=== PATIENT | female | born 1995 | race Caucasian/White ===

== ENCOUNTER 2018-05-28 11:51 | Outpatient (REF) | payer MEDICAID, SELFPAY ==
--- NOTE | 2018-05-28 11:20 | PAPFT_PTH ---
PATIENT: Jie Whiting LOC: [facility] U#:[id number] AGE/SX: 22/F ROOM: RE05/28/[address]: Shanna Rutherford NP : 1995 BED: DIS: 05/28/2018 SPEC #: [id number] RECD: 05/28/18 17:49 STATUS: JULISSA SULLIVAN #: [id number] FIDENCIO: 05/28/18 11:[address]: Shanna Rutherford NP DEPT: [facility] Cytology RECD BY: Alyssa Gutierrez ENTERED: 05/28/18 17:49 SP TYPE: PAPFT OTHR DR: Traci Santana, [facility] Tissues: 1 - CX/ENDOCX FOR PAP SMEARS Procedures: PAP THIN PREP/UVM Screening Comments: [id number] (CHLAMYDIA/GC)
[2018-05-29 13:43] LABS: Chlamydia Result Negative; GC Result Negative; Specimen Description SEE COMMENTS
== END 2018-05-28 12:11 ==
LOC: LBN 11:51
PROVIDERS: PCP Nurse Practitioner Primary Care; Visit Provider Nurse Practitioner Women's Health
DX: Z12.4 Encounter for screening for malignant neoplasm of cervix (principal); Z11.3 Encounter for screening for infections with a predominantly sexual mode of transmission
CPT/HCPCS: 87491; 87591; 88142

== ENCOUNTER 2018-06-06 00:54 | Outpatient (CLI) | payer MEDICAID, SELFPAY ==
--- NOTE | 2018-06-06 14:05 | DI.US_ITS ---
SYMPTOM/DIAGNOSIS: LT PELVIC PAIN, ? OVARIAN CYST, IUD SURVEILLANCE, R10.2, Z87.42,Z30.431 PELVIC ULTRASOUND: Transabdominal and transvaginal exams were performed. The uterus measures 8 by 3.6 by 4.5 cm. An IUD is noted within the endometrium. There is a small amount of fluid within the endometrium. There are dilated periuterine veins which could indicate pelvic congestion syndrome. The ovaries are normal in size and appearance. No free fluid or hydronephrosis is seen. IMPRESSION: An IUD appears well positioned within the endometrium. No ovarian cysts are seen.
== END 2018-06-06 01:14 ==
PROVIDERS: PCP Nurse Practitioner Primary Care; Visit Provider Nurse Practitioner Women's Health
DX: R10.2 Pelvic and perineal pain (principal); Z87.42 Personal history of other diseases of the female genital tract; Z30.431 Encounter for routine checking of intrauterine contraceptive device
CPT/HCPCS: 76830; 76856

== ENCOUNTER 2018-11-16 01:16 | Emergency (ER) | payer MEDICAID, SELFPAY ==
[2018-11-16 01:25] VITALS: RESP 16
[2018-11-16 01:27] VITALS: BP 106/55; PULSE 74; RESP 16; TEMP 36.8; O2SAT 99
--- NOTE | 2018-11-16 01:34 | DI.RAD_ITS ---
SYMPTOMS/DIAGNOSIS: LT CHEST PAIN PA AND LATERAL CHEST: Comparison 06/13/15. The heart is normal in size. The lungs are clear. The mediastinal structures and pleura appear intact. CONCLUSION: Normal chest.
--- NOTE | 2018-11-16 01:44 | W.ED.GENAD ---
Discharge Plan Disposition Patient Disposition: HOME Condition: Improving Discharge Details Chief Complaint: Chest Pain Clinical Impression: Chest wall muscle strain Primary Care Provider: Traci Santana ED Provider: Josh Norris Home Meds and New Rx's Prescriptions: Continued norethindrone (contraceptive) 0.35 mg tablet 0.35 mg PO DAILY Qty: 84 RF: 5 Discharge Instructions Instructions: Muscle Strain (ED) Additional Instructions: Home to rest today. May apply heat to area to reduce discomfort. 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 She is afebrile, well-appearing with reproducible left anterior chest discomfort and unremarkable vital signs. Differential diagnosis includes costochondritis, must exclude ACS as well as PE. Patient had IV access established, given Toradol, referred for chest x-ray and laboratory testing. Chemistries are unremarkable. Troponin is negative. Ddimer negative. Chest x-ray unremarkable. Pain improved with analgesic. Consistent with chest wall strain vs costochondritis. Discussed with patient home management and return precautions. ECG Data Attestation: I personally reviewed and interpreted this ECG (s) as follows: Interpretation: Normal sinus rhythm with a rate of 58, the QRS is narrow, there is no ST segment elevation present. Discrete J-point elevation in leads V2 and V3 HPI General Mode of arrival: ambulatory. Date/Time Provider Initiated Documentation: 11/16/18 01:30. Limitations to Documentation: no limitations. Information obtained by: patient. History of Present Illness 23 year old F presents to the emergency department with the chief complaint of Chest pain 4 hours today, described as moderate, Quality is described as dull and constant, and is localized to the chest, left and upper extremity. Patient started experiencing this hour(s) and it has been constant. No relieving factors improve symptom(s), No exacerbating factors reported . Patient notes no other symptoms.. Patient did receive the following treatments prior to arrival, none Related Data Home Medications Medication Instructions Recorded Confirmed norethindrone (contraceptive) 0.35 0.35 mg PO DAILY #84 tab 07/09/18 11/16/18 mg tablet Previous Rx's Medication Instructions Recorded norethindrone (contraceptive) 0.35 0.35 mg PO DAILY #84 tab 07/09/18 mg tablet Allergies Allergy/AdvReac Type Severity Reaction Status Date / Time No Known Allergies Allergy Unverified 11/16/18 01:30 General Stated Complaint: Chest Pain MAGDALENO: 3 Review of Systems Review of Systems 8 systems reviewed and otherwise - [facility] Medical History Arrhythmia (~2014) Stroke (~2013) Surgical History Brain surgery (~2013) Family History Mother Mental disorder Father No problems noted. Sister No problems noted. Sister No problems noted. Brother No problems noted. Brother No problems noted. Social History Smoking/Tobacco Use Status: Current every day Tobacco Type: cigarettes Alcohol Intake: never Drug use: Never Do you feel safe at home: Yes Do you feel safe in your relationship?: Yes Female Reproductive History Menstrual control method: progestin IUCD History History 2 Para 2 Hx # Term Pregnancies Multiple births Hx # Pregnancies Ectopic pregnancies AB induced Hx Number of Living Children AB spontaneous Exam Narrative Exam Narrative: GEN: awake, alert, oriented 3. Pleasant, well groomed, interactive. HEAD: Normocephalic, atraumatic ENT: Mucous membranes moist, oropharynx unremarkable, External ear exam unremarkable EYES: PERRL, EOMI NECK: Full ROM, no ZACH, no menigismus CHEST/RESP: Left anterior chest wall tender to palpate, clear to auscultation bilateral, no wheeze/rhonchi/rales CARDIOVASCULAR: RRR, no murmur, rub tamara. 2+ Rad pulse bilateral ABDOMEN: Soft, nontender, no mass. +Bowel sounds EXT: Full ROM, no edema, no rash Neuro: Grossly normal neurologic exam, conversant, interactive. Psych: Speech fluent, thoughts congruent, affect normal Course Vital Signs Temperature 36.8 C 11/16/18 01:27 Pulse 74 11/16/18 01:27 Respiratory Rate 16 11/16/18 01:27 Blood Pressure 106/55 L 11/16/18 01:27 Pulse Oximetry 99 11/16/18 01:27 Temperature 36.8 C 11/16/18 01:27 Temperature Source Skin 11/16/18 01:27 Pulse 74 11/16/18 01:27 Respiratory Rate 16 11/16/18 01:27 Respiratory Effort Non-Labored 11/16/18 01:29 Blood Pressure 106/55 L 11/16/18 01:27 Blood Pressure Position Supine 11/16/18 01:27 Pulse Oximetry 99 11/16/18 01:27 Oxygen Delivery Method Room Air 11/16/18 01:27 Oxygen Flow Rate 0 11/16/18 01:27 Pain Level 4 11/16/18 01:27
[2018-11-16] MEDS: Ketorolac 30 MG/ML VIAL IVP (01:50)
--- NOTE | 2018-11-16 01:53 | ED.GENADUL_ITS ---
Discharge Plan Disposition Patient Disposition: HOME Condition: Improving Discharge Details Chief Complaint: Chest Pain Clinical Impression: Chest wall muscle strain Primary Care Provider: Traci Santana ED Provider: Josh Norris Home Meds and New Rx's Prescriptions: Continued norethindrone (contraceptive) 0.35 mg tablet 0.35 mg PO DAILY Qty: 84 RF: 5 Discharge Instructions Instructions: Muscle Strain (ED) Additional Instructions: Home to rest today. May apply heat to area to reduce discomfort. 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 She is afebrile, well-appearing with reproducible left anterior chest discomfort and unremarkable vital signs. Differential diagnosis includes costochondritis, must exclude ACS as well as PE. Patient had IV access established, given Toradol, referred for chest x-ray and laboratory testing. Chemistries are unremarkable. Troponin is negative. Ddimer negative. Chest x- ray unremarkable. Pain improved with analgesic. Consistent with chest wall strain vs costochondritis. Discussed with patient home management and return precautions. ECG Data Attestation: I personally reviewed and interpreted this ECG (s) as follows: Interpretation: Normal sinus rhythm with a rate of 58, the QRS is narrow, there is no ST segment elevation present. Discrete J-point elevation in leads V2 and V3 HPI General Mode of arrival: ambulatory . Date/Time Provider Initiated Documentation: 11/16/18 01:30 . Limitations to Documentation: no limitations . Information obtained by: patient . History of Present Illness 23 year old F presents to the emergency department with the chief complaint of Chest pain 4 hours today, described as moderate, Quality is described as dull and constant, and is localized to the chest, left and upper extremity. Patient started experiencing this hour(s) and it has been constant. No relieving factors improve symptom(s), No exacerbating factors reported . Patient notes no other symptoms.. Patient did receive the following treatments prior to arrival, none Related Data Home Medications Medication Instructions Recorded Confirmed norethindrone (contraceptive) 0.35 0.35 mg PO DAILY #84 tab 07/09/18 11/16/18 mg tablet Previous Rx's Medication Instructions Recorded norethindrone (contraceptive) 0.35 0.35 mg PO DAILY #84 tab 07/09/18 mg tablet Allergies Allergy/AdvReac Type Severity Reaction Status Date / Time No Known Allergies Allergy Unverified 11/16/18 01:30 General Stated Complaint: Chest Pain MAGDALENO: 3 Review of Systems Review of Systems 8 systems reviewed and otherwise - REPLACED BY [facility] Medical History Arrhythmia (~2014) Stroke (~2013) Surgical History Brain surgery (~2013) Family History Mother Mental disorder Father No problems noted. Sister No problems noted. Sister No problems noted. Brother No problems noted. Brother No problems noted. Social History Smoking/Tobacco Use Status: Current every day Tobacco Type: cigarettes Alcohol Intake: never Drug use: Never Do you feel safe at home: Yes Do you feel safe in your relationship?: Yes Female Reproductive History Menstrual control method: progestin IUCD History History 2 Para 2 Hx # Term Pregnancies Multiple births Hx # Pregnancies Ectopic pregnancies AB induced Hx Number of Living Children AB spontaneous Exam Narrative Exam Narrative: GEN: awake, alert, oriented 3. Pleasant, well groomed, interactive. HEAD: Normocephalic, atraumatic ENT: Mucous membranes moist, oropharynx unremarkable, External ear exam unremarkable EYES: PERRL, EOMI NECK: Full ROM, no ZACH, no menigismus CHEST/RESP: Left anterior chest wall tender to palpate, clear to auscultation bilateral, no wheeze/rhonchi/rales CARDIOVASCULAR: RRR, no murmur, rub tamara. 2+ Rad pulse bilateral ABDOMEN: Soft, nontender, no mass. +Bowel sounds EXT: Full ROM, no edema, no rash Neuro: Grossly normal neurologic exam, conversant, interactive. Psych: Speech fluent, thoughts congruent, affect normal Course Vital Signs Temperature 36.8 C 11/16/18 01:27 Pulse 74 11/16/18 01:27 Respiratory Rate 16 11/16/18 01:27 Blood Pressure 106/55 L 11/16/18 01:27 Pulse Oximetry 99 11/16/18 01:27 Temperature 36.8 C 11/16/18 01:27 Temperature Source Skin 11/16/18 01:27 Pulse 74 11/16/18 01:27 Respiratory Rate 16 11/16/18 01:27 Respiratory Effort Non-Labored 11/16/18 01:29 Blood Pressure 106/55 L 11/16/18 01:27 Blood Pressure Position Supine 11/16/18 01:27 Pulse Oximetry 99 11/16/18 01:27 Oxygen Delivery Method Room Air 11/16/18 01:27 Oxygen Flow Rate 0 11/16/18 01:27 Pain Level 4 11/16/18 01:27
[2018-11-16 01:56] LABS: Abs Immature Grans 0.01 k/cumm (0.0-0.09); Absolute Basophil Count 0.05 k/cumm (0.0-0.2); Absolute Eosinophil Count 0.18 k/cumm (0.0-0.7); Absolute Monocyte Count 0.71 k/cumm (0.11-0.7); Absolute Neutrophil Count 4.69 k/cumm (1.2-6.7); Basophils % 0.5; Eosinophils % 1.8; HCT 37.1 % (36.0-46.0); HGB 12.5 g/dL (12.0-15.5); Immature Grans % 0.1; Lymphocytes % 42.1; Mean Corp. HGB Concentration 33.7 g/dL (32.0-36.0); Mean Corpuscular Volume 92.1 fL (80-95); Mean Platelet Volume 10.6 fL (8.0-11.0); Monocytes % 7.3; Neutrophils % 48.2; Platelet Count 281 x1000/uL (130-400); RBC 4.03 m/cumm (4.00-5.20); RBC Distribution Width 13.1 % (11.7-14.6); White Blood Cell Count 9.74 k/cumm (4.4-10.8)
[2018-11-16 02:11] LABS: ALT 28 U/L (12-78); AST 19 U/L (15-37); Albumin 3.5 g/dL (3.4-5.0); Alkaline Phosphatase 52 U/L (46-116); Anion Gap 6.7 mmol/L (3-11); BUN 12 mg/dL (7-18); Bilirubin, Total 0.2 mg/dL (0.2-1.0); CO2 26.3 mmol/L (21.0-32.0); CREATININE 0.68 mg/dL (0.55-1.02); Calcium 8.8 mg/dL (8.5-10.1); Chloride 105 mmol/L (98-107); Glucose 100 mg/dL (70-100); Potassium 3.8 mmol/L (3.5-5.1); Sodium 138 mmol/L (136-145); Total Protein 6.7 g/dL (6.4-8.2)
[2018-11-16 02:16] LABS: Troponin I < 0.02 ng/mL (0.00-0.06)
[2018-11-16 02:25] LABS: D-Dimer 207 ng/mlFEU (<500)
[2018-11-16 02:36] VITALS: BP 107/68; PULSE 68; RESP 16; TEMP 36.7; O2SAT 99
--- NOTE | 2018-11-16 02:39 | DI.VRAD_ITS ---
EXAM: XR Chest, 2 Views EXAM DATE/TIME: 11/16/2018 1:35 AM CLINICAL HISTORY: 23 years old, female; Left-sided chest pain; Patient HX: L chest pain TECHNIQUE: Imaging protocol: XR of the chest, 2 views. COMPARISON: CR CHEST 2 VIEWS PA,LAT 06/13/2015 8:41 PM FINDINGS: Lungs: Unremarkable. No consolidation. Pleural space: Unremarkable. No evidence of pneumothorax. Heart/Mediastinum: Unremarkable. Heart size within normal limits for technique. Bones/joints: Unremarkable. IMPRESSION: No acute findings. Dictated and Authenticated by: Carlos Arreola MD. Ordering:ARNEL Moreno MD
== END 2018-11-16 02:49 | disposition home or self-care (01) ==
PROVIDERS: Emergency Provider Emergency Medicine; PCP Nurse Practitioner Primary Care
DX: S29.011A Strain of muscle and tendon of front wall of thorax, initial encounter (principal); X50.3XXA Overexertion from repetitive movements, initial encounter
CPT/HCPCS: 36415; 80053; 93005; 96374; 99285; 71046; 83735; 84484; 85025; 85379; 93010; 99284; J1885

== ENCOUNTER 2019-06-29 18:57 | Emergency (ER) | payer MEDICAID, SELFPAY ==
[2019-06-29 19:04] VITALS: BP 108/66; PULSE 62; RESP 16; TEMP 37.1; O2SAT 99
[2019-06-29] MEDS: Ibuprofen 800 MG TAB PO (19:55)
[2019-06-29] MEDS: Acetaminophen 500 MG TAB 1000 MG PO (19:55)
[2019-06-29 19:58] LABS: Bilirubin Negative (Negative); Blood Trace-intact (Negative); Clarity Clear (Clear); Glucose Negative (Negative); Ketones Negative (Negative); Leukocyte Esterase Negative (Negative); Nitrite Negative (Negative); Specific Gravity 1.015 (1.005-1.025); Urobilinogen 0.2 EU/dL (Up TO 0.2); pH 7.5 (5-8)
[2019-06-29 20:10] LABS: Bacteria Negative HPF (Negative); C & S Indicated? No; Casts Negative LPF (Negative); Crystals Negative HPF (Negative); Epithelial Cells Negative HPF (Negative); Mucus Negative (Negative); Other Cells Negative (Negative); RBC Negative HPF (0-2); WBC Negative HPF (0-5)
--- NOTE | 2019-06-29 20:20 | ED.GENADUL_ITS ---
Discharge Plan Disposition Patient Disposition: HOME Condition: Good Discharge Details Chief Complaint: Abd Prob Clinical Impression: Abdominal pain, RUQ Primary Care Provider: Traci Santana ED Provider: Marcel Grier Home Meds and New Rx's Prescriptions: No Action norethindrone (contraceptive) 0.35 mg tablet 0.35 mg PO DAILY Qty: 84 RF: 5 Discharge Instructions Instructions: Abdominal Pain (ED) Additional Instructions: At this time there is no evidence of an acute surgical abdomen, however if your pain does continue or worsen please return immediately and we will perform the labs and imaging that we discussed. Please continue to take Tylenol and Motrin as needed for pain. I would have avoid fatty foods, stick with a bland diet of rice, bread, applesauce and bananas. If you notice any worsening of your symptoms, or any new symptoms such as vomiting, diarrhea, fever, chills, shortness of breath, chest pain, numbness, weakness, or fainting , please return immediately to the emergency department for reevaluation. Please follow up with your primary care provider as soon as possible for reassessment and reevaluation. As always, it was a pleasure participating in your medical care today. Medical Decision Making This is a 23-year-old female who presents today for evaluation of of right upper quadrant abdominal pain. Patient states that it started this morning, slightly stabbing and aching in nature, completely unrelated to food intake. She has had no associated vomiting or nausea. No radiation to the right lower quadrant, no pelvic pain or tenderness, no urinary symptoms. No history of previous abdominal surgeries. Exam demonstrates a nontender abdomen, notably nonsurgical. Negative Leahy sign. Minimal subjective tenderness on palpation for the right upper quadrant but not worsened with deep breath or deep palpation. Urinalysis demonstrates no significant abnormalities, is negative. Bedside limited portable ultrasound demonstrates a nondistended slightly contracted gallbladder the gallbladder wall less than 3 mm. Patient demonstrates a notably nonsurgical nonacute abdominal exam with signs and symptoms and consistent with acute cholecystitis and inconsistent with acute appendicitis. However I did have a long discussion with the patient regarding imaging and labs. I did discuss imaging and lab options for the patient and at this time through notable discussion, weighing the risks and benefits, and a shared decision making process the patient has refused imaging and labs at this time. Patient is of an appropriate age to make decisions. The patient is of sound mind, appears clinically sober, and has capacity to make decisions by my clinical exam. Respecting the patient's wishes we will hold off on imaging and labs. At this time her symptoms may be from mild gas or very mild biliary colic. However with no evidence of an acute process we will hold off on further work-up. Had a long discussion with the patient regarding red flags for which to return, as well as my availability any time over the next 4 days for consult in the ED. At this time I do feel that the patient is stable for discharge home. I have extensively reviewed the treatment plan and discharge instructions with the patient. I have addressed all patient concerns at this time. The patient was made aware of what symptoms to monitor for that would warrant a return to the emergency department. Discussed the plan with the patient, they demonstrate verbal understanding and agreement with our assessment and plan at this time. HPI General Date/Time Provider Initiated Documentation: 06/29/19 19:17 . HPI Narrative: This is a 23-year-old female who presents today for evaluation of right upper quadrant abdominal pain. Patient states that this started this morning, it is stabbing in nature and when it is not stabbing it is achy. It is unchanged by food movement or activity. She has been eating well, and has had no nausea vomiting or diarrhea. She denies any significant fatty meals. She denies any tearing sensation in her chest, and a right lower quadrant pain. She denies any pelvic discharge. She has no other complaints at this time. She d enies any other modifying factors. Related Data Home Medications Medication Instructions Recorded Confirmed norethindrone (contraceptive) 0.35 0.35 mg PO DAILY #84 tab 07/09/18 06/29/19 mg tablet Previous Rx's Medication Instructions Recorded norethindrone (contraceptive) 0.35 0.35 mg PO DAILY #84 tab 07/09/18 mg tablet Allergies Allergy/AdvReac Type Severity Reaction Status Date / Time No Known Allergies Allergy Unverified 06/29/19 19:55 General Stated Complaint: Abd Prob MAGDALENO: 3 Review of Systems All systems reviewed & are unremarkable except as noted in HPI and below PFSH Social History Smoking/Tobacco Use Status: Current every day Tobacco Type: cigarettes Alcohol Intake: never Drug use: Never Do you feel safe at home: Yes Do you feel safe in your relationship?: Yes Female Reproductive History Menstrual control method: progestin IUCD History History 2 Para 2 Hx # Term Pregnancies Multiple births Hx # Pregnancies Ectopic pregnancies AB induced Hx Number of Living Children AB spontaneous Exam Narrative Exam Narrative: 1.Const: Well-nourished, Well-developed, appearing stated age 2.Eyes: PERRL, no conjunctival injection, and symmetrical lids. 3.ENT: Atraumatic external nose and ears. Moist MM. Neck: Symmetric, trachea midline, No thyromegaly. 4.CVS: +S1/S2, No murmurs or gallops. Peripheral pulses 2+ and equal in all extremities. Brisk capillary refill in all extremities. 5.RESP: Unlabored respiratory effort. Clear to auscultation bilaterally. No wheezes rales or rhonchi 6.GI: Soft, Nondistended, No hepatosplenomegaly. No guarding or rebound. No pain at McBurney's point, minimal right upper quadrant abdominal pain. Negative Leahy sign. Negative sonographic Leahy sign. No flank or CVA tenderness. 7.MSK: Normocephalic/Atraumatic, Extremities w/o deformity or ttp No cyanosis or clubbing, Normal movement of all extremities 8.Skin: Warm, Dry. No rashes or lesions. 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 Sensation grossly intact, no focal ne urologic deficits. 10.Psych: (AAO) x3. Appropriate mood and affect Course Vital Signs Vital signs: Vital Signs Temperature 37.1 C 06/29/19 19:04 Pulse 62 06/29/19 19:04 Respiratory Rate 16 06/29/19 19:04 Blood Pressure 108/66 06/29/19 19:04 Pulse Oximetry 99 06/29/19 19:04 Temperature 37.1 C 06/29/19 19:04 Temperature Source Temporal Artery Scan 06/29/19 19:04 Pulse 62 06/29/19 19:04 Respiratory Rate 16 06/29/19 19:04 Blood Pressure 108/66 06/29/19 19:04 Blood Pressure Position Sitting 06/29/19 19:04 Pulse Oximetry 99 06/29/19 19:04 Oxygen Delivery Method Room Air 06/29/19 19:04 Oxygen Flow Rate 0 01/06/20 19:04 Pain Level 3 06/29/19 19:54 Lab/Test Results Lab/Test Results: Laboratory Tests Range/Units 06/29/19 19:44 Urine Color (Yellow) Straw Urine Clarity (Clear) Clear Urine pH (5-8) 7.5 Ur Specific [place] (1.005-1.025) 1.015 Urine Protein (Negative) mg/dL Negative Urine Ketones (Negative) mg/dL Negative Urine Blood (Negative) Trace-intact H Urine Nitrite (Negative) Negative Urine Bilirubin (Negative) Negative Urine Urobilinogen (Up TO 0.2) EU/dL 0.2 Ur Leukocyte Esterase (Negative) Negative Urine RBC (0-2) HPF Negative Urine WBC (0-5) HPF Negative Ur Epithelial Cells (Negative) HPF Negative Urine Crystals (Negative) HPF Negative Urine Bacteria (Negative) HPF Negative Urine Casts (Negative) LPF Negative Urine Mucus (Negative) Negative Urine Other (Negative) Negative Ur Culture Indicated? No Urine Glucose (Negative) mg/dL Negative POC- Test(urine) Negative
[2019-06-29 20:22] VITALS: BP 108/66; PULSE 62; RESP 16; TEMP 37.1; O2SAT 99
== END 2019-06-29 20:25 | disposition home or self-care (01) ==
PROVIDERS: Emergency Provider Student in an Organized Health Care Education/Training Program; PCP Nurse Practitioner Primary Care
DX: R10.11 Right upper quadrant pain (principal)
CPT/HCPCS: 81025; 99282; 81003; 81015

== ENCOUNTER 2019-07-16 09:15 | Outpatient (CLI) | payer MEDICAID, SELFPAY ==
--- NOTE | 2019-07-16 12:57 | DI.US_ITS ---
EXAM: US PELVIS AND TRANSVAGINAL CLINICAL HISTORY: dyspareunia N94.10. TECHNIQUE: Ultrasound of the pelvic, both abdominal and transvaginal was performed using standard pr otocol. COMPARISON: US PELVIS TRANSVAGINAL from 06/06/2018 FINDINGS: KIDNEYS: Kidneys are symmetric in size. No evidence of renal calculi. No evidence of hydronephrosis. No renal mass or cyst identified. UTERUS: Position: Anteverted. Size: 8.7 x 4.0 x 4.7 cm Endometrium: 0.4 cm. Normal for patient's menstrual status. Myometrium: Unremarkable. Cervix: Unremarkable. OVARIES: Right: 3.2 x 1.7 x 2.0 cm Cyst or mass: Small follicular cysts. Left: 3.9 x 1.8 x 1.8 cm Cyst or mass: Small follicular cysts. DOPPLER: Color: Symmetric and uniform flow to both ovaries. No hyperemia. Duplex: Normal ovarian arterial waveforms visualized. CUL-DE-SAC: Free fluid: None. IMPRESSION: 1. Normal sonographic appearance of the kidneys. 2. Normal-appearing uterus with endometrial stripe within normal limits. 3. Unremarkable bilateral ovaries.
== END 2019-07-16 09:35 ==
PROVIDERS: PCP Nurse Practitioner Primary Care; Visit Provider Nurse Practitioner Women's Health
DX: N94.10 Unspecified dyspareunia (principal); N83.01 Follicular cyst of right ovary; N83.02 Follicular cyst of left ovary
CPT/HCPCS: 76830; 76856

== ENCOUNTER 2019-07-23 12:19 | Outpatient (REF) | payer MEDICAID, SELFPAY ==
[2019-07-24 13:20] LABS: Chlamydia Result Negative (Negative); GC Result Negative (Negative)
== END 2019-07-23 12:39 ==
LOC: LBN 12:19
PROVIDERS: PCP Nurse Practitioner Primary Care; Visit Provider Obstetrics & Gynecology
DX: N94.10 Unspecified dyspareunia (principal); Z11.3 Encounter for screening for infections with a predominantly sexual mode of transmission
CPT/HCPCS: 87491; 87591; 87480; 87510; 87660

== ENCOUNTER 2021-05-29 10:15 | Outpatient (CLI) | payer MEDICAID, SELFPAY ==
[2021-05-29 15:29] LABS: HCG Quant, Pregnancy 145 mIU/mL (1-3)
== END 2021-05-29 10:16 | disposition home or self-care (01) ==
LOC: LBO 10:16
PROVIDERS: PCP Nurse Practitioner Primary Care; Visit Provider Nurse Practitioner Women's Health
DX: O20.9 Hemorrhage in early pregnancy, unspecified (principal)
CPT/HCPCS: 36415; 84702

== ENCOUNTER 2021-05-31 02:13 | Outpatient (CLI) | payer MEDICAID, SELFPAY ==
[2021-05-31 14:21] LABS: HCG Quant, Pregnancy 334 mIU/mL (1-3)
== END 2021-05-31 02:14 | disposition home or self-care (01) ==
LOC: LBO 02:13
PROVIDERS: PCP Nurse Practitioner Primary Care; Visit Provider Nurse Practitioner Women's Health
DX: O20.9 Hemorrhage in early pregnancy, unspecified (principal)
CPT/HCPCS: 36415; 84702

== ENCOUNTER 2021-06-02 01:13 | Outpatient (CLI) | payer MEDICAID, SELFPAY ==
[2021-06-02 12:55] LABS: HCG Quant, Pregnancy 221 mIU/mL (1-3)
== END 2021-06-02 01:14 | disposition home or self-care (01) ==
LOC: LBO 01:13
PROVIDERS: PCP Nurse Practitioner Primary Care; Visit Provider Obstetrics & Gynecology
DX: O20.0 Threatened abortion (principal)
CPT/HCPCS: 36415; 84702

== ENCOUNTER 2021-06-05 04:01 | Outpatient (CLI) | payer MEDICAID, SELFPAY ==
[2021-06-05 12:38] LABS: HCG Quant, Pregnancy 105 mIU/mL (1-3)
== END 2021-06-05 04:02 | disposition home or self-care (01) ==
LOC: LBO 04:02
PROVIDERS: PCP Nurse Practitioner Primary Care; Visit Provider Obstetrics & Gynecology
DX: O20.0 Threatened abortion (principal)
CPT/HCPCS: 36415; 84702

== ENCOUNTER 2021-06-12 03:22 | Outpatient (CLI) | payer MEDICAID, SELFPAY ==
[2021-06-12 21:29] LABS: HCG Quant, Pregnancy 122 mIU/mL (1-3)
== END 2021-06-12 03:23 | disposition home or self-care (01) ==
LOC: LBO 03:22
PROVIDERS: PCP Nurse Practitioner Primary Care; Visit Provider Nurse Practitioner Women's Health
DX: O03.9 Complete or unspecified spontaneous abortion without complication (principal)
CPT/HCPCS: 36415; 84702

== ENCOUNTER 2021-06-14 08:56 | Outpatient (CLI) | payer MEDICAID, SELFPAY ==
[2021-06-14 10:24] LABS: Abs Immature Grans 0.02 10^3/uL (0.0-0.06); Absolute Basophil Count 0.04 10^3/uL (0.0-0.2); Absolute Eosinophil Count 0.17 10^3/uL (0.0-0.7); Absolute Lymphocyte Count 2.24 10^3/uL (1.2-3.4); Absolute Monocyte Count 0.57 10^3/uL (0.1-0.8); Absolute Neutrophil Count 4.11 10^3/uL (1.2-6.7); Basophils % 0.6; Eosinophils % 2.4; HCT 38.8 % (36.0-46.0); Immature Grans % 0.3; Lymphocytes % 31.3; MCH 30.3 pg (27.0-33.0); MCV 91.9 fL (80-95); MPV 9.6 fL (8.0-11.0); Neutrophils % 57.4; Nucleated RBC 0 %; Platelet Count 290 10^3/uL (130-400); RBC 4.22 10^6/uL (3.93-5.22); RDW 12.4 % (11.7-14.6); RDW-SD 42.1 fL; WBC 7.15 10^3/uL (4.4-10.8)
[2021-06-14 11:08] LABS: HGB 12.8 g/dL (11.2-15.7)
[2021-06-14 11:20] LABS: ALT 24 U/L (14-59); AST 13 U/L (15-37); Albumin 3.7 g/dL (3.4-5.0); Alkaline Phosphatase 50 U/L (46-116); Anion Gap 4.6 mmol/L (3-11); BUN 15 mg/dL (7-18); Bilirubin, Total 0.4 mg/dL (0.2-1.0); CO2 30.4 mmol/L (21.0-32.0); CREATININE 0.7 mg/dL (0.55-1.02); Chloride 104 mmol/L (98-107); Glucose 80 mg/dL (74-106); HCG Quant, Pregnancy 85 mIU/mL (1-3); Potassium 4.2 mmol/L (3.5-5.1); Sodium 139 mmol/L (136-145); Total Protein 6.8 g/dL (6.4-8.2)
== END 2021-06-14 08:57 | disposition home or self-care (01) ==
LOC: LBO 08:59
PROVIDERS: PCP Nurse Practitioner Primary Care; Visit Provider Obstetrics & Gynecology
DX: O00.90 Unspecified ectopic pregnancy without intrauterine pregnancy (principal); O20.0 Threatened abortion
CPT/HCPCS: 36415; 80053; 84702; 85025

== ENCOUNTER 2021-06-17 10:03 | Outpatient (CLI) | payer MEDICAID, SELFPAY ==
[2021-06-17 11:43] LABS: HCG Quant, Pregnancy 62 mIU/mL (1-3)
== END 2021-06-17 10:04 | disposition home or self-care (01) ==
LOC: BCD 06-26 10:03
PROVIDERS: PCP Nurse Practitioner Primary Care; Visit Provider Obstetrics & Gynecology
DX: O00.90 Unspecified ectopic pregnancy without intrauterine pregnancy (principal)
CPT/HCPCS: 36415; 84702

== ENCOUNTER 2021-06-20 02:55 | Outpatient (CLI) | payer MEDICAID, SELFPAY ==
[2021-06-20 10:38] LABS: HCG Quant, Pregnancy 39 mIU/mL (1-3)
== END 2021-06-20 02:56 | disposition home or self-care (01) ==
LOC: LBO 02:55
PROVIDERS: PCP Nurse Practitioner Primary Care; Visit Provider Obstetrics & Gynecology
DX: O00.90 Unspecified ectopic pregnancy without intrauterine pregnancy (principal)
CPT/HCPCS: 36415; 84702

== ENCOUNTER 2021-09-28 11:28 | Outpatient (REF) | payer MEDICAID, SELFPAY ==
--- NOTE | 2021-09-28 10:50 | PAPFT_PTH ---
PATIENT: Jie Whiting LOC: [facility] U#:[id number] AGE/SX: 25/F ROOM: RE09/28/[address]: Alisha Salinas DO : 1995 BED: DIS: 09/28/2021 SPEC #: [id number] RECD: 09/28/21 17:37 STATUS: JULISSA REQ #: [id number] FIDENCIO: 09/28/21 10:[address]: Alisha Salinas DEPT: [facility] Cytology RECD BY: Alyssa Gutierrez ENTERED: 09/28/21 17:37 SP TYPE: PAPFT ARACELI DR: Traci Santana [facility] Tissues: 1 - CX/ENDOCX FOR PAP SMEARS Procedures: PAP THIN PREP/UVM Screening Comments: [id number] (CHLAMYDIA/GC)
[2021-09-29 14:58] LABS: Chlamydia Result Negative (Negative); GC Result Negative (Negative)
== END 2021-09-28 11:29 | disposition home or self-care (01) ==
LOC: LBN 11:28
PROVIDERS: PCP Nurse Practitioner Primary Care; Visit Provider Obstetrics & Gynecology
DX: Z11.3 Encounter for screening for infections with a predominantly sexual mode of transmission (principal); Z12.4 Encounter for screening for malignant neoplasm of cervix
CPT/HCPCS: 87491; 87591; 88142

== ENCOUNTER 2021-11-22 17:54 | Outpatient (REF) | payer MEDICAID, SELFPAY | END 2021-11-22 17:55 | disposition home or self-care (01) | LOC: NCHCN 17:54 | PROVIDERS: PCP Nurse Practitioner Primary Care; Visit Provider Nurse Practitioner Family | DX: R30.0 Dysuria (principal) | CPT/HCPCS: 87077; 87086; 87186 ==

== ENCOUNTER 2021-12-20 19:03 | Emergency (ER) | payer MEDICAID, SELFPAY ==
[2021-12-20 19:14] VITALS: BP 120/53; PULSE 74; RESP 14; TEMP 36.6; O2SAT 100
[2021-12-20 19:34] LABS: Bilirubin Negative (Negative); Blood Negative (Negative); Clarity Clear (Clear); Glucose Negative (Negative); Ketones Negative (Negative); Leukocyte Esterase Negative (Negative); Nitrite Negative (Negative); Urobilinogen 0.2 EU/dL (Up TO 0.2); pH 7.5 (5-8)
--- NOTE | 2021-12-20 20:21 | ED.GENADUL_ITS ---
Discharge Plan Disposition Patient Disposition: HOME Condition: Improving Discharge Details Chief Complaint: Abd Prob Clinical Impression: Abdominal pain Primary Care Provider: Traci Santana ED Provider: Christophe Diop Home Meds and New Rx's Prescriptions: No Action Kyleena 17.5 mcg/24 hrs (5 yrs) 19.5 mg intrauterine device 1 device intrauterine ONCE Qty: 1 0RF Rx Instructions: as a single dose Discharge Instructions Instructions: Abdominal Pain (ED) Additional Instructions: Please follow-up with in the next 2 days for repeat official ultrasound of your right upper quadrant to assess your gallbladder. Please follow-up with your primary care physician in the next week to discuss your symptomatology. If you have any worsening symptoms such as nausea vomiting pain fevers or other abnormal symptoms please return to the emergency department for further evaluation. Medical Decision Making 26-year-old female presents with upper quadrant pain eating associate with mild nausea no vomiting, afebrile nontoxic right upper quadrant objective in nature no guarding or rebounding on examination negative Leahy's sign, consider biliary colic versus less likely early cold cystitis versus less likely kidney stone versus less likely pancreatitis or appendicitis versus gastritis. S upportive care. CT has been negative. Urine is clean. Will obtain basic labs to assess LFTs and lipase. Will perform bedside ultrasound. Will likely have patient follow-up for repeat official ultrasound in the morning. 22: 20 patient resting comfortably no acute distress no nausea vomiting labs unremarkable. Right upper quadrant bedside ultrasound showing normal thickness gallbladder without stones or pericholecystic fluid. Will provide next day ultrasound referral for official right upper quadrant ultrasound. Counseled patient to follow with primary care doctor and to return to the emergency department she has any worsening symptomatology. HPI General Date/Time Provider Initiated Documentation: 12/20/21 19:18 . HPI Narrative: 26-year-old female presents with right upper quadrant abdominal pain worse after eating possible slight nausea without vomiting, denies fevers chills or history of abdominal surgeries. Denies urinary symptomatology. Related Data Home Medications Medication Instructions Recorded Confirmed levonorgestrel 17.5 mcg/24 hrs 1 device intrauterine ONCE #1 ea 11/09/21 12/20/21 (5yrs) 19.5mg intrauterine device (Kyleena) Previous Rx's Medication Instructions Recorded levonorgestrel 17.5 mcg/24 hrs 1 device intrauterine ONCE #1 ea 11/09/21 (5yrs) 19.5mg intrauterine device (Kyleena) Allergies Allergy/AdvReac Type Severity Reaction Status Date / Time No Known Allergies Allergy Verified 12/20/21 19:17 General Stated Complaint: Abd Prob MAGDALENO: 4 Review of Systems Narrative: Review of Systems Constitutional: negative Eyes: negative ENT: negative Cardiovascular: negative Respiratory: negative Gastrointestinal: Right upper quadrant abdominal pain : negative Musculoskeletal: negative Skin: negative Neurologic: negative Psych: negative PFSH All Active Problems (Updated 12/20/21 @ 22:22 by Christophe Diop MD) Abdominal pain (Acute) Dysmenorrhea (Acute) Contraceptive management (Acute) Bladder pain (Acute) Dyspareunia (Acute) Other specified cardiac arrhythmias (Acute 03/22/16) Holter monitor showed abnls. Cardiac consult found nonsignificant episodes of tachycardia but suggested Bruggada's syndrome(sp?); MFM consult rec'd epidural in active labor to improve CV functioning, decreas Per Dr Pike, pt needs telemetry during labor/delivery so will need to deliver at [facility]. Pt had cardiology eval at 37 weeks at [facility] and they released her back to [facility] for delivery. Cardiac arrhythmia (Acute 03/22/16) Holter monitor showed abnls. Cardiac consult found nonsignificant episodes of tachycardia but suggested Bruggada's syndrome(sp?); MFM consult rec'd epidural in active labor to improve CV functioning, decrease catecholamine Per Dr Pike, pt needs telemetry during labor/delivery so will need to deliver at [facility]. AVM (arteriovenous malformation) brain (Acute 03/15/14) MFM consult at [facility] scheduled to discuss risk of second stage; no risk perceived, but pt free to deliver there if desired for peace of mind; rec'd keeping anxiety down in 3rd trimester, tx w/ b active labor, and passive descent as tolerated so no prolonged pushing Per Dr Pike, pt is okay to push as her bleed was venous. Medical History (Updated 12/20/21 @ 22:22 by Christophe Diop MD) Arrhythmia (~2014) Ectopic IUD surveillance Stroke (~2013) Threatened miscarriage in early Surgical History Brain surgery (~2013) Family History Mother Mental disorder depression and anxiety Father No problems noted. Sister No problems noted. Sister No problems noted. Brother No problems noted. Brother No problems noted. Social History Smoking/Tobacco Use Status: Former Tobacco Use Smoking risk assessment performed?: Yes Alcohol Intake: current Alcohol Intake frequency: holidays/special occasions only Alcohol type: beer Drug use: Never Substance use type: does not use Do you feel safe at home: Yes Do you feel safe in your relationship?: Yes Female Reproductive History Menstrual control method: pills History History 2 Para 2 Hx # Term Pregnancies Multiple births Hx # Pregnancies Ectopic pregnancies AB induced Hx Number of Living Children AB spontaneous Exam Narrative Exam Narrative: Physical Examination General: alert, awake, cooperative, resting comfortably, no acute distress HEENT: normocephalic, atraumatic; PERRL, EOM intact, conjunctiva normal; no nasal discharge; moist mucous membranes, oral and pharyngeal mucosa normal, tolerating secretions Neck: supple, trachea midline; full ROM Chest: normal to inspection Respiratory: normal respiratory effort, speaking in full sentences, clear to auscultation, no wheezing, rales or rhonchi Cardiac: regular rate, regular rhythm, S1S2 intact, no murmurs rubs or gallops GI: abdomen soft, non-tender, non-distended; no palpable mass or hepatosplenomegaly; no guarding or rebounding negative Leahy's Skin: no lesions, rashes or trauma appreciated Neuro: AAOx3, normal speech, moving all extremities Psych: Appropriate mood and affect Course Vital Signs Vital signs: Vital Signs Temperature 36.6 C 12/20/21 19:14 Pulse 74 12/20/21 19:14 Respiratory Rate 14 12/20/21 19:14 Blood Pressure 120/53 L 12/20/21 19:14 Pulse Oximetry 100 12/20/21 19:14 Temperature 36.6 C 12/20/21 19:14 Temperature Source Temporal Artery Scan 12/20/21 19:14 Pulse 74 12/20/21 19:14 Respiratory Rate 14 12/20/21 19:14 Respiratory Effort Non-Labored 12/20/21 19:18 Blood Pressure 120/53 L 12/20/21 19:14 Blood Pressure Position Sitting 12/20/21 19:14 Pulse Oximetry 100 12/20/21 19:14 Oxygen Delivery Method Room Air 12/20/21 19:14 Oxygen Flow Rate 0 12/20/21 19:14 Pain Level 4 12/20/21 19:14 Lab/Test Results Lab/Test Results: Laboratory Tests Range/Units 12/20/21 19:22 Urine Color (Yellow) Yellow Urine Clarity (Clear) Clear Urine pH (5-8) 7.5 Ur Specific [place] (1.005-1.025) 1.020 Urine Protein (Negative) mg/dL Negative Urine Ketones (Negative) mg/dL Negative Urine Blood (Negative) Negative Urine Nitrite (Negative) Negative Urine Bilirubin (Negative) Negative Urine Urobilinogen (Up TO 0.2) EU/dL 0.2 Ur Leukocyte Esterase (Negative) Negative Urine Glucose (Negative) mg/dL Negative POC- Test(urine) Negative PAWSS Have you Been Recently Intoxicated or Drunk Within the Last 30 days?: No Have you Ever Experienced Previous Episodes of Alcohol Withdrawal?: No Have you ever Experienced Withdrawal Seizures?: No Have you ever Experienced Delirium Tremens(DT)s?: No Have you ever undergone Alcohol Rehabilitation Treatment (i.e, inpt ot outpati ent treatment programs)?: No Have you ever Experienced Blackouts?: No Have you ever Combined Alcohol with other Downers within the last 90 days?: No Have you ever Combined Alcohol with any other Substance of Abuse during the last 90 days?: No Positive Blood Alcohol level on Presentation? [PCS.BAL]: No Evidence of Increased Autonomic Activity (i.e. HR>120, tremor, sweating, agitation, nausea)?: No Result: 0
[2021-12-20 21:09] LABS: Abs Immature Grans 0.03 10^3/uL (0.0-0.06); Absolute Basophil Count 0.03 10^3/uL (0.0-0.2); Absolute Eosinophil Count 0.12 10^3/uL (0.0-0.7); Absolute Lymphocyte Count 2.86 10^3/uL (1.2-3.4); Absolute Monocyte Count 0.57 10^3/uL (0.1-0.8); Absolute Neutrophil Count 5.18 10^3/uL (1.2-6.7); Basophils % 0.3; Eosinophils % 1.4; HCT 37.4 % (36.0-46.0); HGB 12.8 g/dL (11.2-15.7); Immature Grans % 0.3; Lymphocytes % 32.5; MCH 30.8 pg (27.0-33.0); MCHC 34.2 % (32.0-36.0); MCV 90 fL (80-95); MPV 10.8 fL (8.0-11.0); Monocytes % 6.5; Platelet Count 291 10^3/uL (130-400); RBC 4.15 10^6/uL (3.93-5.22); RDW 12.8 % (11.7-14.6); RDW-SD 42.3 fL; WBC 8.79 10^3/uL (4.4-10.8)
[2021-12-20 22:02] LABS: ALT 17 U/L (14-59); AST 14 U/L (15-37); Albumin 3.7 g/dL (3.4-5.0); Alkaline Phosphatase 47 U/L (46-116); BUN 7 mg/dL (7-18); Bilirubin, Total 0.2 mg/dL (0.2-1.0); CREATININE 0.6 mg/dL (0.55-1.02); Calcium 8.8 mg/dL (8.5-10.1); Chloride 104 mmol/L (98-107); Glucose 94 mg/dL (74-106); Lipase 69 U/L (73-393); Sodium 137 mmol/L (136-145)
[2021-12-20 22:23] VITALS: BP 105/49; PULSE 60; RESP 16; O2SAT 100
== END 2021-12-20 22:27 | disposition home or self-care (01) ==
PROVIDERS: Emergency Provider Emergency Medicine; PCP Nurse Practitioner Primary Care
DX: R10.11 Right upper quadrant pain (principal); R11.0 Nausea
CPT/HCPCS: 36415; 80053; 81025; 83690; 99283; 81003; 85025; 99282

== ENCOUNTER → 2021-12-21 12:12 | Outpatient (CLI) | payer MEDICAID, SELFPAY ==
--- NOTE | 2021-12-21 | DI.US_ITS ---
Exam(s) US ABDOMEN LIMITED EXAM: US ABDOMEN LIMITED CLINICAL HISTORY: RUQ PAIN, GALLBLADDER TECHNIQUE: Ultrasound abdomen performed using standard protocol. COMPARISON: No exams were available for comparison FINDINGS: PANCREAS: Normal where visualized. LIVER: Normal. Hepatopedal flow in the Portal Vein. The liver measures in cm length. GALLBLADDER: No evidence of cholelithiasis. No evidence of wall thickening. No pericholecystic fluid identified. BILIARY SYSTEM: Common bile duct measures < 7 mm. No intrahepatic biliary ductal dilation. SUNSHINE'S SIGN: Negative. RIGHT KIDNEY: Kidney is normal in size. No evidence of renal calculi. No evidence of hydronephrosis. No renal mass or cyst identified. ASCITES: None seen. IMPRESSION: Normal sonographic appearance of the upper abdomen. DATA REPOSITORY:
== END ==
PROVIDERS: PCP Nurse Practitioner Primary Care; Visit Provider Emergency Medicine
DX: R10.11 Right upper quadrant pain (principal)
CPT/HCPCS: 76705

== ENCOUNTER 2023-02-02 15:29 | Outpatient (REF) | payer MEDICAID, SELFPAY | END 2023-02-02 15:30 | disposition home or self-care (01) | LOC: NCHCN 15:29 | PROVIDERS: PCP Nurse Practitioner Family; Visit Provider Physician Assistant | DX: N39.0 Urinary tract infection, site not specified (principal) | CPT/HCPCS: 87086 ==

== ENCOUNTER 2023-07-16 10:12 | Emergency (ER) | payer MEDICAID, SELFPAY ==
[2023-07-16 10:20] VITALS: BP 129/81; PULSE 76; RESP 15; O2SAT 100
--- NOTE | 2023-07-16 10:29 | W.ED.GENAD ---
HPI General Date/Time Provider Initiated Documentation: 07/16/23 10:14. HPI Narrative: 27 year-old female presents to ED today by POV/ambulating with antalgic gait with a chief complaint of R thigh/hip flexor pain after a snowboarding crash- states she felt a pop, and immediately has pain with trying to lift her leg. Quality described as very painful with movement, can stand up straight, no pain with knee flex/ext, no radiation to pain in low back, numbness/tingling, deformity/swelling, internal/external rotation. Severity is described as 8-9 with movement/10. Palliating factors include nothing specific attempted yet. Provoking factors include nothing specific. Patient not anticoagulated. Related Data Home Medications Medication Instructions Recorded Confirmed levonorgestrel 17.5 mcg/24 hrs 1 device intrauterine ONCE #1 ea 11/09/21 07/16/23 (5yrs) 19.5mg intrauterine device (Kyleena) Previous Rx's Medication Instructions Recorded levonorgestrel 17.5 mcg/24 hrs 1 device intrauterine ONCE #1 ea 11/09/21 (5yrs) 19.5mg intrauterine device (Kyleena) Allergies Allergy/AdvReac Type Severity Reaction Status Date / Time No Known Allergies Allergy Verified 12/20/21 19:17 General Stated Complaint: Orthopedic MAGDALENO: 4 Review of Systems All systems reviewed & are unremarkable except as noted in HPI and below Exam Narrative Exam Narrative: GENERAL APPEARANCE: Well-nourished, non-toxic, awake and alert, atraumatic, no acute distress. SKIN: Warm, pink, dry, intact, without rashes/lesions/ulcerations. HEAD: Normocephalic, atraumatic, normal hair distribution for gender/age. EYES: Pupils PERRLA, EOMs intact without nystagmus, normal conjunctiva, no exudates on lids/lashes. ENT: Nares patent, no circumoral cyanosis, no facial swelling NECK: Supple, trachea midline, painless cervical ROM. LUNGS/CHEST: Non-labored respirations, normal A/P diameter, symmetrical expansion, no chest wall deformity HEART (CV/PV): Regular rate and rhythm without murmur, no peripheral edema, no JVD. ABDOMEN: Soft, non-distended, no guarding, no tenderness. MSK: Normal ROM, no swelling/deformity to bilateral UEs or LEs, moving all extremities without weakness, no cyanosis, spine midline without tenderness, normal curvature. R LE/Hip: No tenderness at right iliac crest, has tenderness in the hip flexors area, able to flex and extend the knee without pain, is preferring a position of comfort to keep the leg bend but is able to plantar foot and straighten her back and come into full extension of the leg, severe pain with any hip flexion, no crepitus or deformities, neurovascularly intact in the distal right lower extremity NEURO: Mental Status AAOx4 - alert to person, place, time, events No facial droop, no forehead involvement. Motor: No focal weakness - strength 5/5 in bilateral UEs and LEs, proximal and distal, symmetric. Sensory: sensation intact to light touch globally. Gait normal: patient ambulated without ataxia into ED room. PSYCH: euthymic, cooperative, pleasant, appropriate speech Course Vital Signs Vital signs: Vital Signs Pulse 76 07/16/23 10:20 Respiratory Rate 15 07/16/23 10:20 Blood Pressure 129/81 07/16/23 10:20 Pulse Oximetry 100 07/16/23 10:20 Pulse 76 07/16/23 10:20 Respiratory Rate 15 07/16/23 10:20 Blood Pressure 129/81 07/16/23 10:20 Blood Pressure Position Sitting 07/16/23 10:20 Pulse Oximetry 100 07/16/23 10:20 Oxygen Delivery Method Room Air 07/16/23 10:20 Oxygen Flow Rate 0 07/16/23 10:20 Medical Decision Making This dictation utilizes [id number] dictation software and may contain unedited grammatical errors. 27 y/o F presents to ED today with a chief complaint of snowboard crash, felt a pop in the area of her R hip flexors, pain with hip flexion, R leg dominant. Patient denies headstrike or other trauma during the helmet'd crash. Patients' medical history: negative, otherwise healthy. Family and social history: noncontributory. Pertinent exam findings / vital signs include R LE/Hip: No tenderness at right iliac crest, has tenderness in the hip flexors area, able to flex and extend the knee without pain, is preferring a position of comfort to keep the leg bend but is able to plantar foot and straighten her back and come into full extension of the leg, severe pain with any hip flexion, no crepitus or deformities, neurovascularly intact in the distal right lower extremity. Differential / pathologies of concern include Hip Flexor Strain/Sprain, Labral Tear, Unlikely Fracture. Diagnostic studies of: -XR R Hip - no acute fracture or dislocation seen. Interventions of: -crutches. ED Course/Assessment/Plan: Counseled the otherwise healthy 27-year-old female patient on likely severe sprain of hip flexor muscles or injury to the [id number] joint of the femur and pelvis. I counseled her that she should stay off it and use crutches as well as perform RICE therapy with some sort of boston pack if she could to the area of pain. Counseled on therapeutic dosing of Tylenol and ibuprofen and arranged for outpatient follow-up with orthopedic office. Findings not consistent with fracture, neurovascular compromise, dislocation. Disposition of Sprain of Right Hip. Patient verbalized understanding of the plan and return to ED criteria and engaged in shared decision making. Medical Records Medical records reviewed: Yes I reviewed the patient's medical records. Imaging Data Radiologic Study: Attestation: I personally reviewed and interpreted this imaging study as follows: Imaging: X-Ray Radiologist's impression: EXAM: XR HIP RT COMPLETE AP PELVIS CLINICAL HISTORY: R hip pain. TECHNIQUE: 2D digital imaging was performed of the right hip. Two images were obtained. AP pelvis and lateral right hip views were obtained. COMPARISON: CR THORACO LUMBAR SPINE AP LAT from 06/13/2015 FINDINGS: BONES: No acute fracture is present. No bony destructive lesion is seen. JOINTS: No dislocation present. The joint spaces are well maintained. There is a tiny well corticated osseous density adjacent to the superior acetabulum which appears chronic. SOFT TISSUE: Normal. Note is made of an IUD in the pelvis. IMPRESSION: No acute fracture or dislocation. Quality:SDOH Health Related Social Needs: No Data to Display PFSH All Active Problems (Updated 07/16/23 @ 11:57 by PRATEEK Knapp) Sprain of right hip (Acute) Dysmenorrhea (Acute) Contraceptive management (Acute) Bladder pain (Acute) Dyspareunia (Acute) Other specified cardiac arrhythmias (Acute 03/22/16) Holter monitor showed abnls. Cardiac consult found nonsignificant episodes of tachycardia but suggested Bruggada's syndrome(sp?); MFM consult rec'd epidural in active labor to improve CV functioning, decreas Per Dr Pike, pt needs telemetry during labor/delivery so will need to deliver [place] [facility]. Pt had cardiology eval at 37 weeks at [facility] and they released her back to [facility] for delivery. Cardiac arrhythmia (Acute 03/22/16) Holter monitor showed abnls. Cardiac consult found nonsignificant episodes of tachycardia but suggested Bruggada's syndrome(sp?); MFM consult rec'd epidural in active labor to improve CV functioning, decrease catecholamine Per Dr Pike, pt needs telemetry during labor/delivery so will need to deliver at [facility]. 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 Medical History Arrhythmia (~2014) Ectopic IUD surveillance Stroke (~2013) Threatened miscarriage in early Surgical History Brain surgery (~2013) Family History Mother Mental disorder depression and anxiety Father No problems noted. Sister No problems noted. Sister No problems noted. Brother No problems noted. Brother No problems noted. Social History Smoking/Tobacco Use Status: Former Tobacco Use Smoking risk assessment performed?: Yes Alcohol Intake: current Alcohol Intake frequency: holidays/special occasions only Alcohol type: beer Drug use: Never Substance use type: does not use Do you feel safe at home: Yes Do you feel safe in your relationship?: Yes Female Reproductive History Menstrual control method: pills History History 2 Para 2 Hx # Term Pregnancies Multiple births Hx # Pregnancies Ectopic pregnancies AB induced Hx Number of Living Children AB spontaneous Discharge Plan Disposition Patient Disposition: Home Condition: Stable Discharge Details Clinical Impression: Sprain of right hip Primary Care Provider: Gladis Peck ED Provider: Marcel Guzman Home Meds and New Rx's Prescriptions: Continued Kyleena 17.5 mcg/24 hrs (5 yrs) 19.5 mg intrauterine device 1 device intrauterine ONCE Qty: 1 0RF Rx Instructions: as a single dose Discharge Instructions Instructions: Hip Pain (ED) Additional Instructions: You were seen in the emergency department for your crash while skiing causing some right hip pain with popping sensation, there is no sign of neurologic or vascular compromise to the rest of your right leg but I do suspect that you have injured some structure like a hip flexor tendon or the articular cartilage in your hip socket. You need to use these crutches to take the weight off of your right leg and follow-up with orthopedics, please rest, ice, compress and elevate the area, please use therapeutic dosing of Tylenol (acetamenophen) & Advil (ibuprofen) in an alternating fashion as follows: Take 1000mg of Tylenol every 6 hours without missing doses- that is 4 times per day. [place] in between the Tylenol dosings, take 400-600mg of Advil also on a 6 hour schedule, that is also 4 times per day. The daily maximum dosing of Tylenol is 4000mg, and the daily maximum dosing of Advil is 2400mg. This is safe to do for weeks. Please note that some common cold medications & prescription pain medications may contain acetamenophen and you need to read OTC drug labels and factor that in to maximum daily dosings. Referrals: [facility] [Provider Group] Gladis Peck [Primary Care Provider] -
--- NOTE | 2023-07-16 11:06 | DI.RAD_ITS ---
Exam(s) XR HIP RT COMPLETE AP PELVIS EXAM: XR HIP RT COMPLETE AP PELVIS CLINICAL HISTORY: R hip pain. TECHNIQUE: 2D digital imaging was performed of the right hip. Two images were obtained. AP pelvis a nd lateral right hip views were obtained. COMPARISON: CR THORACO LUMBAR SPINE AP LAT from 06/13/2015 FINDINGS: BONES: No acute fracture is present. No bony destructive lesion is seen. JOINTS: No dislocation present. The joint spaces are well maintained. There is a tiny well corticate d osseous density adjacent to the superior acetabulum which appears chronic. SOFT TISSUE: Normal. Note is made of an IUD in the pelvis. IMPRESSION: No acute fracture or dislocation. DATA REPOSITORY: RADIATION DOSE DELIVERED:
== END 2023-07-16 12:27 | disposition home or self-care (01) ==
PROVIDERS: Emergency Provider Physician Assistant; PCP Nurse Practitioner Family
DX: S73.101A Unspecified sprain of right hip, initial encounter (principal); Z97.5 Presence of (intrauterine) contraceptive device; Z87.891 Personal history of nicotine dependence; W00.0XXA Fall on same level due to ice and snow, initial encounter; Y93.23 Activity, snow (alpine) (downhill) skiing, snowboarding, sledding, tobogganing and snow tubing; Y92.838 Other recreation area as the place of occurrence of the external cause
CPT/HCPCS: 81025; 99283; 73502

== ENCOUNTER 2023-10-21 09:10 | Emergency (ER) | payer MEDICAID, SELFPAY ==
[2023-10-21] VITALS (7 sets, daily range): BP systolic 102–130; BP diastolic 57–90; PULSE 53–95; RESP 14–18; TEMP 36.9; O2SAT 99–100
--- NOTE | 2023-10-21 09:45 | DI.CT_ITS ---
Exam(s) CT HEAD WO/W EXAM: CT HEAD WO/W CLINICAL HISTORY: Headache, Dizziness, hx of brain surgery cavernous. TECHNIQUE: Imaging Protocol: Both noninfused and contrast infused CT scans of the brain were perform ed. IV Contrast Dose =75 cc Axial computed tomography images with coronal and sagittal reformatted images were created and review ed COMPARISON: CT HEAD WITHOUT CONTRAST from 08/02/2013 CT HEAD WITHOUT CONTRAST from 08/07/2013 CT HEAD WITHOUT CONTRAST from 01/31/2015 CT HEAD WITHOUT CONTRAST from 06/14/2015 FINDINGS: Again noted is evidence of posterior left typical craniotomy and subjacent encephalomalacia at this level again noted. There is no evidence of intracranial hemorrhage, new mass effect, or shift of midline structures. Th ere are no extra-axial fluid collections. The ventricles are not enlarged or shifted and there is no blood within the ventricular system nor within the basal cisterns. There are no ring enhancing lesions in the brain and there is no abnormal meningeal enhancement, foca l or diffuse. No evidence of obvious new vascular malformation. IMPRESSION: No significant acute intracranial findings.Again noted is evidence of left occipital craniotomy and e ncephalomalacia and the subjacent surgical bed. However, there are no obvious new focal findings in the brain. No evidence of intracranial hemorrhage. No significant enhancing intracranial findings. No evidence of obvious vascular malformation. RADIATION DOSE DELIVERED: 1,234.27mGy.cm Total DLP DATA REPOSITORY: All CT scans at this facility are submitted to the National Radiology Data Registry (NRDR) Dose Index Registry (DIR) with the [employer] (A[employer]). RADIATION OPTIMIZATION: All CT scans at this facility use at least one of these dose optimization te chniques: automated exposure control; mA and/or kV adjustment per patient size (includes targeted exa ms where dose is matched to clinical indication); or iterative reconstruction.
--- NOTE | 2023-10-21 10:08 | W.ED.GENAD ---
Discharge Plan Disposition Patient Disposition: Home Condition: Stable Discharge Details Clinical Impression: Headache Primary Care Provider: Gladis Peck ED Provider: Bridgette Moreland Home Meds and New Rx's Prescriptions: Continued Kyleena 17.5 mcg/24 hrs (5 yrs) 19.5 mg intrauterine device 1 device intrauterine ONCE Qty: 1 0RF Rx Instructions: as a single dose Discharge Instructions Instructions: General Headache (ED) Additional Instructions: No evidence of abnormality on head CT. Please keep your appointment with your primary care provider as previously scheduled. Increase oral fluids. Please take Tylenol or Ibuprofen with food every 4-6 hours as needed for pain and swelling. Follow up with primary care provider in 3-5 days. Return to ED sooner if any worsening or concerns. Referrals: Gladis Peck [Primary Care Provider] - 3 days HPI General Mode of arrival: ambulatory. Date/Time Provider Initiated Documentation: 10/21/23 09:21. Limitations to Documentation: no limitations. Information obtained by: patient, RN notes reviewed and old records reviewed. HPI Narrative: 27-year-old female presents to the ER with chief complaint of left frontal ocular headache which she reports as a migraine which has been getting worse. Associated with nausea dizziness and blurred vision. She did have a cavernous malformation in 2018 surgery. She reports she has not a PCP appointment with her doctor tomorrow but she reports was instructed to present to the ER if any worsening. She reports that it is about a 7 out of 10. She has not taken any medications for the headache because she does not like taking medications. No vomiting. No focal neurodeficits noted. Related Data Home Medications Medication Instructions Recorded Confirmed levonorgestrel 17.5 mcg/24 hrs 1 device intrauterine ONCE #1 ea 11/09/21 10/21/23 (5yrs) 19.5mg intrauterine device (Kyleena) Previous Rx's Medication Instructions Recorded levonorgestrel 17.5 mcg/24 hrs 1 device intrauterine ONCE #1 ea 11/09/21 (5yrs) 19.5mg intrauterine device (Kyleena) Allergies Allergy/AdvReac Type Severity Reaction Status Date / Time No Known Allergies Allergy Verified 10/21/23 11:02 General Stated Complaint: Headache MAGDALENO: 3 Review of Systems All systems reviewed & are unremarkable except as noted in HPI and below Constitutional Constitutional: Reports as per HPI, Denies frequent falls, Reports headache(s) and Denies weakness ENT Ears, Nose, Mouth, and Throat: Reports headache(s) Gastrointestinal Gastrointestinal: Denies abdominal pain, Denies diarrhea, Reports nausea and Denies vomiting Musculoskeletal Musculoskeletal: Denies abnormal gait, Denies numbness and Denies tingling Neurologic Neurologic: Denies abnormal movements, Denies abnormal speech, Denies abnormal gait, Denies frequent falls, Reports headache(s), Denies numbness, Denies convulsions, Denies tingling, Denies tremor(s) and Denies weakness Exam Narrative Exam Narrative: Constitutional: Alert and oriented x3. Appears stated age. Normal body habitus. Head: Normocephalic, no trauma. Eyes: Pupils PERRL, Red reflex noted, EOM's intact. Eyelids symmetrical without lesions, discharge, or swelling. ENT: Bilateral TM's WNL, External ear normal to inspection, no mastoid TTP, swelling, or erythema, Nasal turbinates WNL, no nasal discharge. Normal dentition, Posterior pharynx WNL, no exudate. Chest: RRR, Normal S1, S2, distal pulses intact. Resp: Lungs clear to auscultation bilaterally, no wheezes, rales, or rhonchi. Abdomen: Soft, non-distended, Normoactive bowel sounds all 4 quads. Musculoskeletal: Normal gait, Moves all 4 extremities without difficulty. Skin: No suspicious rashes or lesions. Capillary refill less than 2 sec. Neurologic: Cranial nerves II-XII intact. Alert and oriented x 3. Motor: No deficits noted. Sensory: Intact bilaterally all 4 extremities. Hematologic/Lymphatic: No ecchymosis, no lymphadenopathy. Course Vital Signs Vital signs: Vital Signs Temperature 36.9 C 10/21/23 09:17 Pulse 95 H 10/21/23 09:17 Respiratory Rate 18 10/21/23 09:17 Pulse Oximetry 100 10/21/23 09:17 Temperature 36.9 C 10/21/23 09:17 Temperature Source Temporal Artery Scan 10/21/23 09:17 Pulse 69 10/21/23 09:54 Respiratory Rate 15 10/21/23 09:54 Respiratory Effort Normal, Non-Labored 10/21/23 09:54 Blood Pressure 130/90 10/21/23 09:54 Blood Pressure Position Supine 04/29/24 09:54 Pulse Oximetry 100 10/21/23 09:54 Oxygen Delivery Method Room Air 10/21/23 09:54 Oxygen Flow Rate 0 10/21/23 09:17 Pain Level 7 10/21/23 09:54 Comment Has not taking anything for headache 10/21/23 09:54 Medical Decision Making 27-year-old female presents to the ER with chief complaint of left frontal ocular headache which she reports as a migraine which has been getting worse. Associated with nausea dizziness and blurred vision. She did have a cavernous malformation in 2018 surgery. She reports she has not a PCP appointment with her doctor tomorrow but she reports was instructed to present to the ER if any worsening. She reports that it is about a 7 out of 10. She has not taken any medications for the headache because she does not like taking medications. No vomiting. No focal neurodeficits noted. CT within normal limits. No evidence of hemorrhage or vascular malformation. Patient is laughing in the room. Labs are largely unremarkable. Patient is declining any analgesic or pain medication. Will discharge patient with follow-up with PCP. This text was generated using [employer] system, please disregard any oddities of phrase or misspellings. Imaging Data Radiologic Study: Imaging: CT Scan Radiologist's impression: Exam(s) CT HEAD WO/W EXAM: CT HEAD WO/W CLINICAL HISTORY: Headache, Dizziness, hx of brain surgery cavernous. TECHNIQUE: Imaging Protocol: Both noninfused and contrast infused CT scans of the brain were performed. IV Contrast Dose =75 cc Axial computed tomography images with coronal and sagittal reformatted images were created and reviewed COMPARISON: CT HEAD WITHOUT CONTRAST from 08/02/2013 CT HEAD WITHOUT CONTRAST from 08/07/2013 CT HEAD WITHOUT CONTRAST from 01/31/2015 CT HEAD WITHOUT CONTRAST from 06/14/2015 FINDINGS: Again noted is evidence of posterior left typical craniotomy and subjacent encephalomalacia at this level again noted. There is no evidence of intracranial hemorrhage, new mass effect, or shift of midline structures. There are no extra-axial fluid collections. The ventricles are not enlarged or shifted and there is no blood within the ventricular system nor within the basal cisterns. There are no ring enhancing lesions in the brain and there is no abnormal meningeal enhancement, focal or diffuse. No evidence of obvious new vascular malformation. IMPRESSION: No significant acute intracranial findings.Again noted is evidence of left occipital craniotomy and encephalomalacia and the subjacent surgical bed. However, there are no obvious new focal findings in the brain. No evidence of intracranial hemorrhage. No significant enhancing intracranial findings. No evidence of obvious vascular malformation. Lab Data Lab results reviewed: Yes I reviewed the patient's lab results. Labs: Laboratory Tests Range/Units 10/21/23 10:15 WBC (4.4-10.8) 10^3/uL 6.58 RBC (3.93-5.22) 10^6/uL 4.77 Hgb (11.2-15.7) g/dL 14.5 Hct (36.0-46.0) % 43.6 MCV (80-95) fL 91 MCH (27.0-33.0) pg 30.4 MCHC (32.0-36.0) % 33.3 RDW (11.7-14.6) % 12.4 Plt Count (130-400) 10^3/uL 286 MPV (8.0-11.0) fL 10.7 Immature Gran % 0.3 Neutrophils % 64.9 Lymphocytes % 26.1 Monocytes % 6.1 Eosinophils % 1.4 Basophils % 1.2 Nucleated RBC % (0.0-0.3) % 0.0 Absolute Neutrophils (1.2-6.7) 10^3/uL 4.27 Absolute Lymphocytes (1.2-3.4) 10^3/uL 1.72 Absolute Monocytes (0.1-0.8) 10^3/uL 0.40 Absolute Eosinophils (0.0-0.7) 10^3/uL 0.09 Absolute Basophils (0.0-0.2) 10^3/uL 0.08 PT (9.1-11.1) sec 10.2 INR (0.9-1.1) 1.0 Sodium (136-145) mmol/L 144 Potassium (3.5-5.1) mmol/L 3.8 Chloride (98-107) mmol/L 106 Carbon Dioxide (21.0-32.0) mmol/L 30.6 Anion Gap (3-11) mmol/L 7.4 BUN (7-18) mg/dL 17 Creatinine (0.55-1.02) mg/dL 0.7 Est GFR (CKD-EPI 2020) (mL/min/1.73m2) 120.74 Glucose (74-106) mg/dL 96 Calcium (8.5-10.1) mg/dL 9.0 Total Bilirubin (0.2-1.0) mg/dL 0.4 AST (15-37) U/L 19 ALT (14-59) U/L 44 Alkaline Phosphatase (46-116) U/L 42 L Total Protein (6.4-8.2) g/dL 7.8 Albumin (3.4-5.0) g/dL 4.1 Quality:[facility] Health Related Social Needs: No Data to Display PFSH All Active Problems (Updated 10/21/23 @ 11:15 by Bridgette Moreland NP) Headache (Acute) Dysmenorrhea (Acute) Contraceptive management (Acute) Bladder pain (Acute) Dyspareunia (Acute) Other specified cardiac arrhythmias (Acute 03/22/16) Holter monitor showed abnls. Cardiac consult found nonsignificant episodes of tachycardia but suggested Bruggada's syndrome(sp?); MFM consult rec'd epidural in active labor to improve CV functioning, decreas Per Dr Pike, pt needs telemetry during labor/delivery so will need to deliver at [facility]. Pt had cardiology eval at 37 weeks at [facility] and they released her back to [facility] for delivery. Cardiac arrhythmia (Acute 03/22/16) Holter monitor showed abnls. Cardiac consult found nonsignificant episodes of tachycardia but suggested Bruggada's syndrome(sp?); MFM consult rec'd epidural in active labor to improve CV functioning, decrease catecholamine Per Dr Pike, pt needs telemetry during labor/delivery so will need to deliver at [facility]. AVM (arteriovenous malformation) brain (Acute 03/15/14) MFM consult at [facility] scheduled to discuss risk of second stage; no risk perceived, but pt free to deliver there if desired for peace of mind; rec'd keeping anxiety down in 3rd trimester, tx w/ b active labor, and passive descent as tolerated so no prolonged pushing Per Dr Pike, pt is okay to push as her bleed was venous. Medical History Arrhythmia (~2014) Ectopic IUD surveillance Stroke (~2013) Threatened miscarriage in early Surgical History Brain surgery (~2014) Family History Mother Mental disorder depression and anxiety Father No problems noted. Sister No problems noted. Sister No problems noted. Brother No problems noted. Brother No problems noted. Social History Smoking/Tobacco Use Status: Former Tobacco Use Smoking risk assessment performed?: Yes Alcohol Intake: current Alcohol Intake frequency: holidays/special occasions only Alcohol type: beer Drug use: Never Substance use type: does not use Housing: house Do you feel safe at home: Yes Do you feel safe in your relationship?: Yes Female Reproductive History Menstrual control method: pills History History 2 Para 2 Hx # Term Pregnancies Multiple births Hx # Pregnancies Ectopic pregnancies AB induced Hx Number of Living Children AB spontaneous
[2023-10-21 10:22] LABS: Abs Immature Grans 0.02 10^3/uL (0.0-0.06); Absolute Basophil Count 0.08 10^3/uL (0.0-0.2); Absolute Eosinophil Count 0.09 10^3/uL (0.0-0.7); Absolute Lymphocyte Count 1.72 10^3/uL (1.2-3.4); Absolute Neutrophil Count 4.27 10^3/uL (1.2-6.7); Basophils % 1.2; Eosinophils % 1.4; HCT 43.6 % (36.0-46.0); HGB 14.5 g/dL (11.2-15.7); Immature Grans % 0.3; Lymphocytes % 26.1; MCH 30.4 pg (27.0-33.0); MCHC 33.3 % (32.0-36.0); MCV 91 fL (80-95); MPV 10.7 fL (8.0-11.0); Monocytes % 6.1; Neutrophils % 64.9; Platelet Count 286 10^3/uL (130-400); RBC 4.77 10^6/uL (3.93-5.22); RDW 12.4 % (11.7-14.6); RDW-SD 42.1 fL; WBC 6.58 10^3/uL (4.4-10.8)
[2023-10-21] MEDS: Normal Saline - Diluent 50 ML VIAL IJ (10:38)
[2023-10-21 10:39] LABS: Prothrombin Time 10.2 sec (9.1-11.1)
[2023-10-21] MEDS: Omnipaque 350 MG/ML 100 ML BTL IJ (10:39)
[2023-10-21 10:43] LABS: ALT 44 U/L (14-59); AST 19 U/L (15-37); Albumin 4.1 g/dL (3.4-5.0); Alkaline Phosphatase 42 U/L (46-116); Anion Gap 7.4 mmol/L (3-11); BUN 17 mg/dL (7-18); Bilirubin, Total 0.4 mg/dL (0.2-1.0); CO2 30.6 mmol/L (21.0-32.0); CREATININE 0.7 mg/dL (0.55-1.02); Chloride 106 mmol/L (98-107); Estimated GFR 120.74 (mL/min/1.73m2); Glucose 96 mg/dL (74-106); Potassium 3.8 mmol/L (3.5-5.1); Sodium 144 mmol/L (136-145); Total Protein 7.8 g/dL (6.4-8.2)
== END 2023-10-21 11:22 | disposition home or self-care (01) ==
PROVIDERS: Emergency Provider Registered Nurse Emergency; PCP Nurse Practitioner Family
DX: R51.9 Headache, unspecified (principal); R11.0 Nausea; H53.8 Other visual disturbances; Z86.011 Personal history of benign neoplasm of the brain
CPT/HCPCS: 36415; 80053; 81025; 99284; 70470; 85025; 85610; 99283; J3490

== ENCOUNTER 2024-04-29 22:10 | Outpatient (REF) | payer MEDICAID, SELFPAY ==
[2024-04-29 21:17] LABS: Abs Immature Grans 0.01 10^3/uL (0.0-0.06); Absolute Basophil Count 0.05 10^3/uL (0.0-0.2); Absolute Eosinophil Count 0.18 10^3/uL (0.0-0.7); Absolute Lymphocyte Count 2.19 10^3/uL (1.2-3.4); Absolute Monocyte Count 0.37 10^3/uL (0.1-0.8); Absolute Neutrophil Count 4.73 10^3/uL (1.2-6.7); Basophils % 0.7 %; Eosinophils % 2.4 %; HCT 37.2 % (36.0-46.0); HGB 12.7 g/dL (11.2-15.7); Immature Grans % 0.1 %; Lymphocytes % 29.1 %; MCH 30.7 pg (27.0-33.0); MCHC 34.1 % (32.0-36.0); MCV 90 fL (80-95); MPV 11.1 fL (8.0-11.0); Monocytes % 4.9 %; Neutrophils % 62.8 %; Platelet Count 269 10^3/uL (130-400); RBC 4.14 10^6/uL (3.93-5.22); RDW 12.2 % (11.7-14.6); RDW-SD 40.3 fL; WBC 7.53 10^3/uL (4.4-10.8)
[2024-04-29 22:10] LABS: ALT 30 U/L (14-59); AST 28 U/L (15-37); Albumin 3.8 g/dL (3.4-5.0); Alkaline Phosphatase 42 U/L (46-116); Anion Gap 11.7 mmol/L (3-11); BUN 14 mg/dL (7-18); Bilirubin, Total 0.33 mg/dL (0.2-1.0); CO2 26.3 mmol/L (21.0-32.0); CREATININE 0.7 mg/dL (0.55-1.02); Calcium 9.1 mg/dL (8.5-10.1); Chloride 106 mmol/L (98-107); Estimated GFR 119.99 (mL/min/1.73m2); Glucose 97 mg/dL (74-106); Potassium 4.1 mmol/L (3.5-5.1); Sodium 144 mmol/L (136-145); TSH (W/Ref FT4) 1.29 uIU/mL (0.36-3.74); Total Protein 6.9 g/dL (6.4-8.2); Vitamin B12 603 pg/mL (193-986)
== END 2024-04-29 22:11 | disposition home or self-care (01) ==
LOC: NCHCN 22:10
PROVIDERS: PCP Nurse Practitioner Family; Visit Provider Nurse Practitioner Family
DX: R20.2 Paresthesia of skin (principal)
CPT/HCPCS: 80053; 82607; 84443; 85025